=== PATIENT | male | born 2005 | race Hispanic/Latino ===

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

== ENCOUNTER 2025-01-19 19:23 | Emergency (ER) | payer SELFPAY ==
[~2025-01-19] VITALS: Ht 172.7 cm; Wt 174.8 kg
--- NOTE | 2025-01-19 20:09 | ERN ---
General Chief Complaint: Abdominal Pain Stated Complaint: ABD PAIN Time Seen by MD: 19:35 Source: patient History of Present Illness Initial Comments 19-year-old super obese male who experienced periumbilical pain that migrated around to his right upper flank at 11:00 a.m. this morning. He took two Advils in the pain went away only to return. Patient comes to the emergency room and he is asymptomatic now. No other associated symptoms. 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 He does not remember any trauma or lifting any objects that strained him. Allergies: Coded Allergies: No Known Drug Allergies (Unverified Allergy, Unknown, 05/26/20) Past Medical History Past Medical History: No Pertinent History Past Surgical History: None ROS Dictation Review of systems is negative. No nausea or vomiting. No fevers or chills. No change in urination or defecation. No chest pain no shortness of breath. Constitutional: (-) chills, (-) diaphoresis, (-) fever, (-) malaise, (-) weakness, (-) other documentation EENTM: (-) eye pain, (-) blurred vision, (-) tearing, (-) double vision, (-) ear pain, (-) ear discharge, (-) nose pain, (-) nose congestion, (-) throat pain, (-) Throat swelling, (-) mouth pain, (-) tooth pain, (-) mouth swelling, (-) other documentation Respiratory: (-) cough, (-) orthopnea, (-) short of breath, (-) stridor, (-) wheezing, (-) other documentation Gastrointestinal/Abdominal: (-) nausea, (-) vomiting, (-) diarrhea, (-) abdominal pain, (-) abdominal distention, (-) constipation, (-) rectal bleeding, (-) dark stool/melena, (-) other documentation Genitourinary: (-) penile discharge, (-) dysuria, (-) frequency, (-) hematuria, (-) pain, (-) other documentation Musculoskeletal: (-) Neck pain, (-) back pain, (-) Flank Pain, (-) joint pain, (-) joint swelling, (-) muscle pain, (-) muscle stiffness, (-) gout, (-) other documentation Physical Exam General Appearance: (+) no apparent distress Orientation: (+) alert, (+) oriented x 3 Head/Face Trauma: No Eye: bilateral eye normal inspection, bilateral eye PERRL, bilateral eye EOMI Ear, Nose, Throat: (+) hearing grossly normal, (+) normal ENT inspection, (+) moist mucous membraine, (+) normal pharynx Neck: (+) normal inspection, (+) supple, (+) full range of motion Respiratory: (+) chest non-tender, (+) lungs clear, (+) well ventilated Heart: (+) regular, (+) no gallop Vascular: (+) no edema, (+) normal peripheral pulse Gastrointestinal: (+) soft, (+) non-tender, (+) no organomegaly, (+) bowel sound absent Gastrointestinal Comment Patient has 0 abdominal tenderness. I pushed extremely hard on his umbilical region right upper quadrant and right flank with no tenderness. Patient states he has no pain anywhere in his abdomen right now. Back: (+) normal inspection, (+) no CVA tenderness Results Laboratory and Microbiology Lab and Micro Result Laboratory Tests Test 01/19/25 20:22 01/19/25 20:47 White Blood Count 10.7 K/uL (4.8-10.8) Red Blood Count 5.26 MIL/uL (4.50-6.20) Hemoglobin 14.0 g/dL (14.0-18.0) Hematocrit 42.5 % (42-54) Mean Corpuscular Volume 80.8 fL (80-100) Mean Corpuscular Hemoglobin 26.6 pg (27.0-33.0) L Mean Corpuscular Hemoglobin Concent 32.9 g/dL (32.0-36.0) Red Cell Distribution Width 14.1 % (11.0-15.5) Platelet Count 291 K/uL (130-400) Mean Platelet Volume 11.0 fL (7.5-10.5) H Immature Granulocyte % (Auto) 0.3 % (0-1) Neutrophils (%) (Auto) 72.6 % (40.0-77.0) Lymphocytes (%) (Auto) 18.3 % (21.0-51.0) L Monocytes (%) (Auto) 6.7 % (3.0-13.0) Eosinophils (%) (Auto) 1.6 % (0.0-8.0) Basophils (%) (Auto) 0.5 % (0.0-5.0) Neutrophils # (Auto) 7.8 K/uL (1.8-7.7) H Lymphocytes # (Auto) 2.0 K/uL (1.0-4.8) Monocytes # (Auto) 0.7 K/uL (0.1-1.0) Eosinophils # (Auto) 0.17 K/uL (0.00-0.70) Basophils # (Auto) 0.05 K/uL (0.00-0.20) Absolute Immature Granulocyte (auto 0.03 K/uL (0-1) Nucleated Red Blood Cells 0.0 % (0.0-0.19) Sodium Level 140 mmol/L (136-145) Potassium Level 3.9 mmol/L (3.5-5.1) Chloride Level 106 mmol/L (101-111) Carbon Dioxide Level 30 mmol/L (21-32) Blood Urea Nitrogen 12 mg/dL (7-18) Creatinine 0.8 mg/dL (0.5-1.3) Glomerular Filtration Rate Calc 131 mL/min (>90) Random Glucose 150 mg/dL (70-105) H Total Calcium 8.9 mg/dL (8.5-10.1) Urine Color LIGHT-YELLOW (YELLOW) Urine Appearance CLEAR (CLEAR) Urine pH 6.0 (5.0-8.0) Urine Specific [place] 1.022 (1.001-1.031) Urine Protein NEGATIVE mg/dL (NEGATIVE) Urine Glucose (UA) NEGATIVE mg/dL (NEGATIVE) Urine Ketones NEGATIVE mg/dL (NEGATIVE) Urine Occult Blood NEGATIVE (NEGATIVE) Urine Nitrate NEGATIVE (NEGATIVE) Urine Bilirubin NEGATIVE mg/dL (NEGATIVE) Urine Urobilinogen 0.2 mg/dL (0.2-1.0) Urine Leukocyte Esterase NEGATIVE [place]/uL Urine RBC 6-10 /HPF (0-1) H Urine WBC 2-5 /HPF (0-1) H Urine Bacteria RARE /HPF (None Seen) MDM MDM: Differential diagnosis: Patient's symptoms are absent now. They could have been a muscle stitch. My plan was to discharge the patient home until we measured his systolic blood pressure and noticed it was quite high. We will start an IV give him some fluids check urine to him some hydralazine see if we can get a more normal blood pressure. Rationale: Tests considered and ordered secondary to shared decision making include: Previous outside records reviewed: Old ER visits. Risk of complication and/or morbidity or mortality of patient management: None Medications-Per medication reconciliation Need for hospitalization: Patient does meet criteria for hospitalization. Need for emergency major/minor surgery: No There are no social concerns with this patient. Prescription drug management Prescriptions will include symptomatic care Patient's prior external medical records from other ER visits were reviewed by me as indicated. Prior testing and results from previous visits were reviewed. Prior tests were taken into account with medical decision making and resource utilization, independent historian/historians were used to obtain complete medical history. I independently interpreted the test that were performed, results were reviewed by me and considered findings on radiology if ordered. Patient's high blood pressure prompted a minimal workup. CBC was normal chemistry panel except for a blood glucose of 150 was normal UA was normal. Patient was given 20 mg IV hydralazine in his blood pressure did decrease to 180 systolic. Patient needs to follow up with his primary care physician and see that his blood pressure is controlled. In addition he needs to lose a lot of weight. ED Course Orders Procedure Category Date Status Time Lactated Ringers PHA 01/19/25 Complete 1000ml (Lactated 20:09 Hydralazine 20mg Inj PHA 01/19/25 Complete (Apresoline 20mg In 20:30 12 Lead Ekg Tracing- EKG 01/19/25 Complete Technical 20:09 Urinalysis Profile LAB 01/19/25 Complete 20:09 Basic Metabolic Panel LAB 01/19/25 Complete 20:09 Cbc With Differential LAB 01/19/25 Complete 20:09 Current Medications Medications (Trade) Dose Ordered Sig/[place] Route PRN Reason Start Time Stop Time Status Last Admin Dose Admin Hydralazine HCl (APRESOLine 20MG INJ) 20 mg ONCE ONCE IV 01/19/25 20:30 01/19/25 20:31 DC 01/19/25 20:52 Lactated Ringer's (Lactated Ringers 1000ml) 1,000 ml BOLUS STAT IV 01/19/25 20:09 01/19/25 20:27 DC 01/19/25 20:52 Vital Signs Date Time Temp Pulse Resp B/P (MAP) Pulse Ox O2 Delivery O2 Flow Rate FiO2 01/19/25 21:25 99.9 92 16 180/88 99 Room Air* 0 21 01/19/25 20:09 99.9 99 16 203/114 99 Room Air* 0 21 01/19/25 19:25 99.9 99 20 175/108 96 Room Air 0 DX & DISP Disposition: Discharge Departure Impression: Primary Impression: Hypertension Additional Impressions: Pre-diabetes, Morbid obesity Condition: Stable Additional Instructions: You came here because of a small pain in your abdomen that may or may not have been a muscle twitch. Since that symptom is gone and your abdominal exam is extremely benign I can not figure out what was the cause of this pain. During a workup we discovered that your blood glucose was 150 and we discovered that you have high blood pressure. We gave you a medication to lower your blood pressure a little bit. You need to follow-up with your primary care physician to continue to monitor your blood glucose and to get better control of your blood pressure. In addition it is mandatory that you lose weight. Otherwise these problems we will continue to get worse. Referrals: CHAGO PADGETT MD (PCP) BETH RODRIGUEZ MD Jan 19, 2025 20:09
--- NOTE | 2025-01-19 20:21 | EKG ---
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
[2025-01-19 20:31] LABS: IMMATURE GRANULOCYTE ABSOLUTE 0.03 K/uL (0-1); NUCLEATED RED BLOOD CELLS 0.0 % (0.0-0.19); PLATELET COUNT (AUTO) 291 K/uL (130-400); RED BLOOD CELL COUNT(AUTO) 5.26 MIL/uL (4.50-6.20); RED CELL DISTRIBUTION WIDTH 14.1 % (11.0-15.5); WHITE BLOOD COUNT (AUTO) 10.7 K/uL (4.8-10.8)
[2025-01-19 20:38] LABS: CREATININE 0.8 mg/dL (0.5-1.3); GLOMERULAR FILTR. RATE CALC 131.0 mL/min (>90); GLUCOSE,RANDOM 150.0 mg/dL (70-105); SODIUM SERUM 140.0 mmol/L (136-145); UREA NITROGEN, BLOOD 12.0 mg/dL (7-18)
[2025-01-19] MEDS: LACTATED RINGERS 1000ML IV STA (20:52)
[2025-01-19 20:59] LABS: APPEARANCE,URINE CLEAR (CLEAR); GLUCOSE, URINE (UA) NEGATIVE (NEGATIVE); LEUKOCYTE ESTERASE ,URINE NEGATIVE Leu/uL (NEGATIVE); NITRATE,URINE NEGATIVE (NEGATIVE); OCCULT BLOOD,URINE NEGATIVE (NEGATIVE)
[2025-01-19 21:00] LABS: ADD UA MICROSCOPIC YES
[2025-01-19 21:25] VITALS: BP 180/88; PULSE 92; RESP 16; TEMP 99.9; O2SAT 99
== END 2025-01-19 22:14 | disposition home or self-care (01) ==
LOC: EDH 19:23
DX: I10 Essential (primary) hypertension (principal); R73.03 Prediabetes
CPT/HCPCS: 99284; 96374; 80048; 85025; 81001; 36415; 93005; J7120; J0360